=== PATIENT | male | born 1970 | race Caucasian/White ===

== ENCOUNTER 2018-03-06 10:44 | Emergency (ER) | payer OTHER ==
[~2018-03-06] VITALS: Ht 175.3 cm; Wt 95.2 kg
[2018-03-06] MEDS ORDERED: LIDOCAINE 1% Multi-Dose 20 ML VIAL. ONE (10:52)
[2018-03-06] MEDS ORDERED: LIDOCAINE 2% 20 ML VIAL. ONE (10:52)
[2018-03-06] MEDS ORDERED: NEOMY/BACITR/POLYMYXIN OINT PACKET. TP ONE ×3 (10:57→11:30)
[2018-03-06 11:19] VITALS: BP 133/90
[2018-03-06] MEDS ORDERED: LIDOCAINE 1% Multi-Dose 20 ML VIAL. IJ ONE (11:30)
[2018-03-06] MEDS ORDERED: LIDOCAINE 2% 20 ML VIAL. IJ ONE (11:30)
--- NOTE | 2018-03-06 11:48 | PHYS DOC ---
Adult General Chief Complaint Chief Complaint: LACERATION/AVULSION HPI HPI Patient is a 47-year-old male who sustained a laceration to his right thumb. Really more of an avulsion actually he was working on cutting an onion with a device designed to do so and he sliced off a piece of this to his family brought into the emergency room with him it just occurred less than one hour prior to arrival Review of Systems Review of Systems Current Medications Current Medications Current Medications Medications (Trade) Dose Ordered Sig/Nelson Start Time Stop Time Status Last Admin Dose Admin Lidocaine HCl 20 ml 1X ONCE 03/06/18 11:30 03/06/18 11:31 DC 03/06/18 11:25 20 ML Neomycin/ Polymyxin/ Bacitracin (Triple Antibiotic Ointment) 5 pkt 1X ONCE 03/06/18 11:30 03/06/18 11:31 DC 03/06/18 11:26 5 PKT Allergies Allergies Allergies Coded Allergies Type Severity Reaction Last Updated Verified promethazine Allergy Unknown 03/06/18 Yes Physical Exam Physical Exam Constitutional: Well developed, well nourished, no acute distress, non-toxic appearance. [] HENT: Normocephalic, atraumatic, bilateral external ears normal, oropharynx moist, no oral exudates, nose normal. [] Pulmonary: Normal respiratory effort no increased work of breathing no obvious chest wall trauma Abdomen: Bowel sounds normal, soft, no tenderness, no masses, no pulsatile masses. [] Skin: There is an avulsion injury to the tip of the right thumb that doesn't involve the nail there is loss of tissue but he does have the tissue with him in a separate bag is approximately 3 cm in size ma. [] Neurologic: Alert and oriented X 3, normal motor function, normal sensory function, no focal deficits noted. [] Psychologic: Affect normal, judgement normal, mood normal. [] EKG EKG [] Radiology/Procedures Radiology/Procedures [] Course & Med Decision Making Course & Med Decision Making Pertinent Labs and Imaging studies reviewed. (See chart for details) Laceration repair note: Tetanus is up-to-date verbal consent was obtained digital block was performed with 1% lidocaine total for N else patient received adequate anesthesia after several minutes. The wound was irrigated profusely no foreign body was identified attention was taken to prepare the lost tissue for replantation. That was cleansed carefully but fairly 5-0 nylon simple interrupted sutures were used to reapproximate and reattached the avulsed tissue. Dermabond was used to close the injury to the nail wound care per precautions were given suture removal in 10-12 days return precautions discussed patient voiced understanding Oscar Disclaimer Oscar Disclaimer This electronic medical record was generated, in whole or in part, using a voice recognition dictation system. Departure Departure: Impression: Primary Impression: Laceration Disposition: 01 HOME, SELF-CARE Condition: STABLE Patient Instructions: Laceration Care, Adult, [id number] RHYS PERERA MD Mar 06, 2018 11:48
== END 2018-03-06 11:37 | disposition home or self-care (01) ==
LOC: ER 10:44
DX: S61.011A Laceration without foreign body of right thumb without damage to nail, initial encounter (principal); Z88.4 Allergy status to anesthetic agent; W26.8XXA Contact with other sharp object(s), not elsewhere classified, initial encounter; Y93.89 Activity, other specified; Y92.89 Other specified places as the place of occurrence of the external cause; Y99.8 Other external cause status
CPT/HCPCS: 12002; 99283-25; J2001

== ENCOUNTER 2018-03-18 13:44 | Emergency (ER) | payer OTHER ==
[~2018-03-18] VITALS: Ht 175.3 cm; Wt 95.2 kg
[2018-03-18 13:59] VITALS: BP 138/81
--- NOTE | 2018-03-18 14:10 | PHYS DOC ---
Past History Past Medical History: No Pertinent History, Hypertension Past Surgical History: Tonsillectomy Alcohol Use: Occasionally Drug Use: None Adult General Chief Complaint Chief Complaint: SUTURE/STAPLE REMOVAL HPI HPI Patient is a 47 year old right-handed male who presents for suture removal that was placed in right thumb laceration on 03/06/2018. Patient denies drainage of pus or fever and chills. Patient had amputation of tip of finger that was sutured by ER physician. Review of Systems Review of Systems Constitutional: Denies fever or chills [] Eyes: Denies change in visual acuity, redness, or eye pain [] HENT: Denies nasal congestion or sore throat [] Respiratory: Denies cough or shortness of breath [] Cardiovascular: No additional information not addressed in HPI [] GI: Denies abdominal pain, nausea, vomiting, bloody stools or diarrhea [] : Denies dysuria or hematuria [] Musculoskeletal: Denies back pain or joint pain [] Integument: Denies rash or skin lesions [] Neurologic: Denies headache, focal weakness or sensory changes [] Endocrine: Denies polyuria or polydipsia [] All other systems were reviewed and found to be within normal limits, except as documented in this note. Allergies Allergies Allergies Coded Allergies Type Severity Reaction Last Updated Verified promethazine Allergy Unknown 03/18/18 Yes Physical Exam Physical Exam Constitutional: Well developed, well nourished, no acute distress, non-toxic appearance. [] HENT: Normocephalic, atraumatic Eyes: PERRLA, EOMI, conjunctiva normal, no discharge. [] Neck: Normal range of motion, no tenderness, supple, no stridor. [] Cardiovascular:Heart rate regular rhythm, no murmur [] Lungs & Thorax: Bilateral breath sounds clear to auscultation [] Skin: Warm, dry, no erythema, no rash. [] Back: No tenderness, no CVA tenderness. [] Extremities: Right thumb be healed laceration with black skin in amputated part of laceration without sign of infection. No tenderness, no cyanosis, no clubbing , ROM intact, no edema. [] Neurologic: Alert and oriented X 3, normal motor function, normal sensory function, no focal deficits noted. [] Psychologic: Affect normal, judgement normal, mood normal. [] Current Patient Data Vital Signs Vital Signs Date Time Temp Pulse Resp B/P (MAP) Pulse Ox O2 Delivery O2 Flow Rate FiO2 03/18/18 13:59 98.4 91 18 98 Room Air EKG EKG [] Radiology/Procedures Radiology/Procedures [] Course & Med Decision Making Course & Med Decision Making discharge: I've spoken with the patient and/or caregivers. I've explained the patient's condition, diagnosis and treatment plan based on information available to me at this time. I've answered the patient's and/or caregivers questions and addressed any concerns. The patient and/or caregivers have a good understanding the patient's diagnosis, condition and treatment plan as can be expected at this point. Vital signs have been stabilized. The patient's condition is stable for discharge from the emergency department. The patient will pursue further outpatient evaluation with her primary care provider or other designated consulting physician as outlined in the discharge instructions. Patient and/or caregivers are agreeable to this plan of care and follow-up instructions have been explained in detail. The patient and/or caregivers have received these instructions in written format and expressed understanding of these discharge instructions. The patient and her caregivers are aware that if any significant change in condition or worsening of symptoms should prompt him to immediately return to this of the closest emergency department. If an emergent department is not readily available I would encourage him to call 911. Oscar Disclaimer Oscar Disclaimer This electronic medical record was generated, in whole or in part, using a voice recognition dictation system. Departure Departure: Impression: Primary Impression: Encounter for removal of sutures Disposition: HOME, SELF-CARE (at 1415) Condition: STABLE Referrals: PCP,UNKNOWN (PCP) Patient Instructions: Suture Removal Additional Instructions: Keep wound clean and dry Return to ER if not getting better DAIJA NELSON MD Mar 18, 2018 14:10
== END 2018-03-18 14:24 | disposition home or self-care (01) ==
LOC: ER 13:44
DX: S61.011D Laceration without foreign body of right thumb without damage to nail, subsequent encounter (principal); I10 Essential (primary) hypertension; Z88.8 Allergy status to other drugs, medicaments and biological substances; X58.XXXD Exposure to other specified factors, subsequent encounter
CPT/HCPCS: 99282